=== PATIENT | female | born 1975 | race Two or more races ===

== ENCOUNTER 2017-09-28 10:35 | Day surgery (SDC) | payer OTHER ==
--- NOTE | 2017-09-22 14:46 | HP ---
Admitting History and Physical - Primary Care Physician PCP: Fredo Stack - Admission Chief Complaint: Right breast mass History of Present Illness: 42 year old premenapausal female with H/O right breast core biopsy at 12: 00 and 9:00 02/2015 showing fibroadenomas . She underwent a follow up mammogram and US showing right 12:00 fibroadenoma to increase to 2.2 cm from 1.1 cm History Source: Patient Limitations to Obtaining History: No Limitations - Past Medical History TAKER AWAY: Yes: Seizure (Last 01/2015) - Past Surgical History Past Surgical History: Yes: Additional Past Surgical History: Right breast core bx x2 fibroadenoma 2015 at 9:00 and 12:00 - Smoking History Smoking history: Never smoked Aproximately how many cigarettes per day: 0 - Alcohol/Substance Use Hx Alcohol Use: No Home Medications - Allergies Allergies/Adverse Reactions: Allergies Allergy/AdvReac Type Severity Reaction Status Date / Time Cephalosporins Allergy Verified 04/19/13 17:57 - Home Medications Home Medications: Ambulatory Orders Clonazepam [KlonoPIN] 0.5 mg PO AM 04/19/13 Levetiracetam [Keppra] 500 mg PO TID 04/19/13 Oxycodone HCl/Acetaminophen [Percocet 5-325 mg Tablet] 0.5 - 1 combo PO QID PRN #14 tablet 11/01/13 Family Disease History - Family Disease History Family History: Denies Physical Examination Constitutional: Yes: Well Nourished Breast(s): Yes: Other (B cup breasts, Easily felt right breast density at 12:00 2 cm. no adenopathy dense breast bilaterally) Problem List - Problems (1) Mass of right breast Code(s): N63.10 - UNSPECIFIED LUMP IN THE RIGHT BREAST, UNSPECIFIED QUADRANT Assessment/Plan Right breast biopsy
[2017-09-22 18:20] VITALS: BMI 22.8
[2017-09-28] MEDS ORDERED: BUPIVACAINE HCL/PF 2.5 MG/ML - 30 ML VIAL IJ ONE (11:12)
[2017-09-28] MEDS ORDERED: LIDOCAINE HCL 1%, 10 MG/ML (20ML VIAL) ONE (11:13)
[2017-09-28] MEDS ORDERED: ONDANSETRON 4 MG/2 ML VIAL ONE (12:34)
[2017-09-28] MEDS ORDERED: MIDAZOLAM HCL 2 MG/2 ML SINGLE DOSE VIAL ONE (12:34)
[2017-09-28] MEDS ORDERED: PROPOFOL 20 ML ONE ×3 (12:36)
[2017-09-28] MEDS ORDERED: LIDOCAINE HCL 2% 100 MG/5 ML DISP.SYRIN ONE (12:37)
[2017-09-28] MEDS ORDERED: KETOROLAC TROMETHAMINE 30 MG/1 ML VIAL ONE (13:49)
[2017-09-28] MEDS ORDERED: KETOROLAC TROMETHAMINE 30 MG/1 ML VIAL IVPUSH PRN (13:58)
[2017-09-28] MEDS ORDERED: ONDANSETRON 4 MG/2 ML VIAL IVPUSH PRN (13:58)
[2017-09-28] MEDS ORDERED: DEXTROSE 5%-0.45% SALINE 1,000 ML IV SCH (14:00)
[2017-09-28 14:14] VITALS: TEMP 98.5
[2017-09-28] MEDS ORDERED: oxyCODONE HCL 5 MG TABLET ONE (15:16)
[2017-09-28 18:02] VITALS: BP 118/71; PULSE 69
--- NOTE | 2017-09-29 02:12 | OP ---
DATE OF OPERATION: 09/28/2017 PREOPERATIVE DIAGNOSIS: Right breast mass. POSTOPERATIVE DIAGNOSIS: Right breast mass. PROCEDURE: Right breast excisional biopsy. ANESTHESIA: Local with IV sedation. SURGEON: Jaswant Stack MD FILM PRINTER: SHOSHANA Nuno COMPLICATIONS: None. HISTORY: The patient is a 42-year-old, G1, P1, premenopausal female of descent who was noted to have a couple of densities in the right breast in the 12 o'clock and 9 o'clock region and had ultrasound-guided core biopsies showing fibroadenomas. Right breast 12 o'clock density had increased in size from 1.1 to 2.2 cm and excision was recommended. DESCRIPTION OF PROCEDURE: She was brought in through ambulatory surgery on September 28, 2017. In the holding area, site verification was made and informed consent was obtained. She was brought into the operating room and placed on the OR table in the supine position. Venodynes were placed on the lower extremities prior to anesthesia. She was given IV sedation and the right breast was sterilely prepped and draped in the usual fashion. No IV antibiotics were given, given the small nature of the excision. Then, 1% lidocaine was given in a curvilinear fashion on the upper aspect of the nipple areolar complex and a curvilinear incision was made on the edge of the nipple areolar complex in the right breast. Dissection was undertaken around the palpable density, which was easily identified and dissected free from the surrounding tissue. It was noted to be somewhat adherent to the surround tissues so some of the breast tissue was removed from the round the density with the density intact within the middle of the specimen. The specimen was grossly benign and sent to pathology in formalin. Hemostasis was achieved. The breast parenchyma was then reapproximated using 2-0 plain suture. The skin was closed using interrupted 3-0 deep dermal Vicryl suture and a running 4-0 subcuticular Biosyn suture. Mastisol and Steri-Strips were applied over the wound with a compressive dressing placed over this. The patient tolerated the procedure well without difficulty. She was awake and alert at the end of the procedure and brought back to ambulatory surgery postoperatively and will be discharged home the same day once discharge criteria are met. All sponge and needle counts are correct at the end of the case. Estimated blood loss is about 10 mL. She will follow up in the office in 1 week for formal wound pathology check. JASWANT STACK M.D. [id number]
--- NOTE | 2017-10-05 15:16 | PATH ---
Surgical Pathology Report Patient Name: CIRA ALVARADO [facility]. Rec. #: [id number] /Age/Gender: 1975 (Age: 42) / F Account: [id number] Location: [facility] Taken: 09/28/2017 Received: 09/29/2017 Reported: 10/05/2017 Physicians: Fredo Stack M.D. 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 LESION EXTENDS TO INKED SURGICAL MARGINS. REMAINDER OF THE BREAST TISSUE SHOWS FIBROCYSTIC AND FIBROADENOMATOID CHANGES INCLUDING MICROCYSTS, SCLEROSING ADENOSIS, COLUMNAR CELL CHANGE, AND MICROCALCIFICATIONS WITHIN BENIGN DUCTS. SEE COMMENT. Comment: The lesion shows a spectrum of changes from cellullar fibroadenoid areas to focal areas of clefting, mild stromal cellularity, mild stromal atypia and some stromal overgrowth. Up to 2-3 mitosis/10 hpf are present. Suggest clinical/radiologic correlation. Case shown interdepartmentally. Electronically Signed Clare Dorsey M.D. Gross Description Received in formalin labeled "right breast mass," is a 4.5 x 2.8 x 1.8 cm irregular, unoriented portion of fibroadipose tissue. There is no needle localization wire present. There is no skin present. The specimen is inked black and serially sectioned. Sectioning reveals a 1.9 x 1.5 x 0.9 cm pink-garduno, rubbery nodule. The nodule focally abuts the radial margin. The specimen is entirely and sequentially submitted in 10 cassettes. Time to formalin fixation: Approximately 1 minute Total formalin fixation time: Approximately 29 hours. /09/29/201709/29/2017
== END 2017-09-28 18:03 | disposition home or self-care (01) ==
LOC: FASU 10:35
PROVIDERS: ATTEND Surgery Surgical Oncology
PROC: 0HBT0ZX Excision of Right Breast, Open Approach, Diagnostic (ICD-10-PCS; principal; 2017-09-28 13:04)
DX: N63.10 Unspecified lump in the right breast, unspecified quadrant (principal); D24.1 Benign neoplasm of right breast; N60.21 Fibroadenosis of right breast; N60.11 Diffuse cystic mastopathy of right breast
CPT/HCPCS: 84703; 88307-TC